=== PATIENT | male | born 1950 | race Caucasian/White ===

== ENCOUNTER → 2020-05-31 | Outpatient (CLI) | payer MEDICARE, BC ==
[~2020-05-31] MED LIST: AMLODIPINE BESYL5 MG PO; ARICEPT10 MG PO; ASPIRIN EC81 MG PO; CYMBALTA60 MG PO; IMDUR ER TAB 3030 MG PO; MORPHINE PAIN PUMP; NABUMETONE500 MG PO; NORFLEX 100 MG100 MG PO; ROPINIROLE HCL1 MG PO; VITAMIN D21250 MCG PO
== END ==
LOC: HEART 5 08:52
DX: R07.9 Chest pain, unspecified (principal); I07.1 Rheumatic tricuspid insufficiency
CPT/HCPCS: 78452; 93306; A9502; J2785